=== PATIENT | female | born 1980 | race Two or more races ===

== ENCOUNTER → 2020-09-16 | Day surgery (SDC) | payer OTHER ==
[~2020-09-16] MED LIST: [UNRECOGNIZED DRUG - REMARK]
== END | disposition home or self-care (01) ==
LOC: ADM 09-09 15:15 → AMB-ENDOS 12:03
PROVIDERS: ATTEND Surgery
DX: K62.89 Other specified diseases of anus and rectum (principal); Z20.822 Contact with and (suspected) exposure to COVID-19

== ENCOUNTER 2020-10-13 06:05 | Day surgery (SDC) | payer OTHER ==
[~2020-10-13 06:05] MED LIST changes: +LAMICTAL200 M1 PO; +PEPCID AC10 MG PO; +PROTONIX20 MG PO; +WELLBUTRIN SR150 MG PO; +XANAX1 MG PO; +ZOLOFT100 MG PO
== END 2020-10-13 16:30 | disposition home or self-care (01) ==
LOC: CIR.AMB 06:05
PROVIDERS: ATTEND Obstetrics & Gynecology Gynecology
DX: N83.11 Corpus luteum cyst of right ovary (principal); N83.292 Other ovarian cyst, left side; N73.6 Female pelvic peritoneal adhesions (postinfective); Z20.822 Contact with and (suspected) exposure to COVID-19